=== PATIENT | male | born 1980 | race African-American/Black ===

== ENCOUNTER 2019-10-17 18:13 | Emergency (ER) | payer OTHER ==
[~2019-10-17] VITALS: Ht 167.6 cm; Wt 71.7 kg
[2019-10-17] MEDS ORDERED: [UNRECOGNIZED DRUG - REMARK] PO (18:26)
== END 2019-10-17 19:06 | disposition home or self-care (01) ==
LOC: ER 18:13 → EDBD 18:16 → ER 18:16
DX: M79.18 Myalgia, other site (principal)

== ENCOUNTER 2019-11-06 15:49 | Emergency (ER) | payer OTHER ==
[~2019-11-06] VITALS: Ht 167.6 cm; Wt 63.5 kg
[~2019-11-06 15:49] MED LIST: [UNRECOGNIZED DRUG - REMARK] PO
== END 2019-11-06 17:14 | disposition home or self-care (01) ==
LOC: ER 15:49
DX: R10.13 Epigastric pain (principal); F41.8 Other specified anxiety disorders